=== PATIENT | male | born 1975 | race Caucasian/White ===

== ENCOUNTER 2018-12-30 23:50 | Emergency (ER) | payer MEDICARE, OTHER, SELFPAY ==
--- NOTE | 2018-12-30 23:57 | DI.RAD.S_ITS ---
PROCEDURE: XR CHEST 1V INDICATIONS: chest pain TECHNIQUE: One view of the chest was acquired. COMPARISON: None. FINDINGS: Surgical changes and devices: None. Lungs and pleura: Lungs are clear. No pleural effusions or pneumothorax. Mediastinum: Mediastinal contours appear normal. Heart size is normal. Bones and chest wall: No suspicious bony lesions. Overlying soft tissues appear unremarkable. IMPRESSION: 1. No acute cardiopulmonary disease. Dictated by: Griffin Lozano M.D. on 12/31/2018 at 7:59 Approved by: Griffin Lozano M.D. on 12/31/2018 at 8:00
[2018-12-30 23:58] VITALS: BP 136/91; PULSE 58; RESP 18; TEMP 36.6; O2SAT 98; BMI 24.7
[2018-12-31] MEDS: ASPIRIN 81 MG CHEW TAB 324 MG PO (00:08)
[2018-12-31 00:12] LABS: Prothrombin Time 11.4 SECONDS (10.1-12.7)
[2018-12-31 00:13] LABS: Add Manual Diff / Slide Review NO; Basophils Absolute Auto 100 /uL (0-100); Basophils Percent Auto 1.1 % (0-2); Eosinophils Absolute Auto 200 /uL (0-450); Eosinophils Percent Auto 2.4 % (2-4); Hematocrit 43.4 % (41-53); Hemoglobin 14.8 g/dL (13.5-17.5); Lymphocytes Absolute Auto 4400 /uL (1100-4500); Lymphocytes Percent Auto 45.1 % (25-40); Mean Corpuscular Hemoglobin 29.7 PG (26-34); Mean Corpuscular Volume 87.5 fL (80-100); Monocytes Absolute Auto 800 /uL (0-900); Monocytes Percent Auto 7.9 % (3-14); Neutrophils Absolute Auto 4200 /uL (1500-7000); Neutrophils Percent Auto 43.5 % (50-75); Platelet Count 234 X10^3/uL (150-400); Red Blood Cell Count 4.96 X10^6/uL (4.5-5.9); Red Cell Distribution Width 12.9 % (11.6-14.8); White Blood Cell Count 9.7 X10^3/uL (4.5-11.0)
[2018-12-31 00:15] LABS: PTT Partial Thromboplastin Tim 33 SECONDS (26.4-36.2)
--- NOTE | 2018-12-31 00:19 | ED_ITS ---
HPI - Chest Pain General Chief Complaint: Chest Pain Stated Complaint: chest pain Time Seen by Provider: 12/30/18 23:56 Source: patient Mode of arrival: ambulatory Limitations: no limitations History of Present Illness HPI narrative: Patient is a 43-year-old male who presents with chest discomfort. He has had it 2 nights this week. He had it 2 nights ago just when he was lying down it lasted for 5 hours nonradiating ventrally went away. He is able to work on the house and do some plumbing projects without any difficulty. Tonight he had pizza for dinner it again is lie down to go to sleep and noticed it. He says actually got better when he stood up and walk around but still present. He denies any shortness of breath. No nausea he took some [place] Tums thinking it might be acid reflux but it did not help. He denies any traveling he has no hemoptysis no leg swelling. No fevers is sitting on the center of his chest. MD complaint: chest pain Onset: during rest Pain location: substernal Severity: mild Quality: dull Pain radiation: none Relieving factors: nothing Exacerbating factors: nothing Review of Systems Review of Systems Narrative: GENERAL: Denies chills, fatigue, malaise, fever, sweats, travel HEENT: Denies sinus pain, ear pain, sore throat, difficulty swallowing, neck pain RESPIRATORY: Denies any cough shortness of breath and wheezing, hemoptysis CARDIOVASCULAR: See HPI GASTROINTESTINAL: Denies nausea, vomiting, abdominal pain, diarrhea, constipation, melena. : Denies dysuria, frequency, incontinence, hematuria, urinary retention, flank pain. MUSCULOSKELETAL: Denies weakness, joint pain, or bony pain SKIN: No rash, no erythema, no pruritus NEUROLOGIC: Denies weakness, dizziness, headache, numbness, change in speech, confusion PSYCHIATRIC: No concerning psychosocial issues. 12 point review of systems is negative except for those stated above and HPI [facility] Medical History PTSD (post-traumatic stress disorder) (Acute) Social History Smoking Status: Current every day smoker Social History Smoking Status: Current every day smoker Exam Initial Vital Signs Initial Vital Signs: Vital Signs Temperature 97.9 F 12/30/18 23:58 Pulse Rate 58 L 12/30/18 23:58 Respiratory Rate 18 12/30/18 23:58 Blood Pressure 136/91 H 12/30/18 23:58 Pulse Oximetry 98 12/30/18 23:58 GENERAL: Well-appearing, well-nourished and in no acute distress. HEENT: Head atraumatic,EOMI, pupils reactive, face symmetric, moist mucous membranes CARDIOVASCULAR: Regular rate and rhythm without murmurs, rubs or gallops. RESPIRATORY: Breath sounds equal bilaterally, no wheezes rales or rhonchi. ABDOMEN: Soft, nontender. Normoactive bowel sounds all 4 quadrants. No guarding or rebound. EXTREMITIES: Normal range of motion, no clubbing or edema. Neurovascularly intact NEUROLOGICAL: Alert and oriented x4.Normal gait and speech. SKIN: Warm, dry, no laceration, no petechiae, no rashes or lesions. Scores HEART Score Heart Score history: Slightly Suspicious Heart Score EKG: Normal Heart Score Age: < 45 years old Heart Score risk factors: No known risk factors Heart Score troponin: < or = to normal limit Heart Score Total: 0 PERC Score Age greater than or equal to 50 years: No Heart rate greater than or equal to 100 bpm: No Room Air O2 Sat less than 95%: No Unilateral leg swelling: No Recent trauma or surgery: No Hemoptysis: No Prior PE or DVT: No Hormone Use: No Total PERC Score: 0 Wells' Criteria for PE Clinical signs and symptoms of DVT: No PE is #1 Dx or equally likely: No Heart rate > 100: No Immobilization at least 3 days or surg in previous 4 weeks: No History of PE or DVT: No Hemoptysis: No Malignancy w/Treatment within 6 months or palliative: No Wells' PE Score total: 0 Course Orders Ordered: ED Orders 12/30/18 23:57 XR chest 1V Stat EKG-12 Lead Stat 12/30/18 23:58 B Type Natriuretic Peptide Stat Complete Blood Count AUTO DIFF Stat Comprehensive Metabolic Panel Stat Lipase Stat Partial Thromboplastin Time Stat Prothrombin Time INR Stat Troponin & CK Cardiac Panel Stat 12/31/18 EKG-12 Lead Stat 12/31/18 02:55 Troponin I Stat Discontinued Medications Aspirin (Aspirin Chew) 324 mg PO NOW ONE Stop: 12/30/18 23:57 Last Admin: 12/31/18 00:08 Dose: 324 mg Documented by: MOLINA Ketorolac Tromethamine (Toradol) 30 mg IV NOW ONE Stop: 12/31/18 00:41 Last Admin: 12/31/18 00:53 Dose: 30 mg Documented by: MOLINA Pantoprazole Sodium (Protonix) 40 mg IV NOW ONE Stop: 12/31/18 00:35 Last Admin: 12/31/18 00:54 Dose: 40 mg Documented by: MOLINA Vital Signs Vital signs: Vital Signs - 8 hr 12/30/18 23:58 12/31/18 00:20 12/31/18 01:08 Temperature 97.9 F Pulse Rate 58 L 68 60 Respiratory Rate 18 18 18 Blood Pressure 136/91 H Blood Pressure [Left Arm] 127/86 104/77 Pulse Oximetry 98 98 99 12/31/18 02:03 12/31/18 03:45 Temperature Pulse Rate 60 51 L Respiratory Rate 13 16 Blood Pressure 113/75 Blood Pressure [Left Arm] 112/70 Pulse Oximetry 99 98 MDM - Chest Pain Lab Data Attestation: I reviewed the patient's lab results. Result diagrams: 12/30/18 23:58 12/30/18 23:58 Labs: Lab Results 12/30/18 12/30/18 12/30/18 Range/Units 23:58 23:58 23:58 WBC 9.7 (4.5-11.0) X10^3/uL RBC 4.96 (4.5-5.9) X10^6/uL Hgb 14.8 (13.5-17.5) g/dL Hct 43.4 (41-53) % MCV 87.5 (80-100) fL MCH 29.7 (26-34) PG MCHC 34.0 (30-36) % RDW 12.9 (11.6-14.8) % Plt Count 234 (150-400) X10^3/uL Neut % (Auto) 43.5 L (50-75) % Lymph % (Auto) 45.1 H (25-40) % Rock % (Auto) 7.9 (3-14) % Eos % (Auto) 2.4 (2-4) % Baso % (Auto) 1.1 (0-2) % Neut # (Auto) 4200 (0015-2849) /uL Lymph # (Auto) 4400 (5570-6298) /uL Rock # (Auto) 800 (0-900) /uL Eos # (Auto) 200 (0-450) /uL Baso # (Auto) 100 (0-100) /uL PT 11.4 (10.1-12.7) SECONDS INR 1.0 (0.9-1.3) APTT 33 (26.4-36.2) SECONDS Sodium (137-145) mmol/L Potassium (3.4-5.1) mmol/L Chloride (98-107) mmol/L Carbon Dioxide (22-32) mmol/L BUN (9-20) mg/dL Creatinine (0.66-1.25) mg/dL Estimated GFR (>60) mL/min BUN/Creatinine Ratio (6-22) Glucose (70-100) mg/dL Calcium (8.4-10.2) mg/dL Total Bilirubin (0.2-1.3) mg/dL AST (17-59) IU/L ALT (21-72) IU/L Alkaline Phosphatase (38-126) U/L Total Creatine Kinase (55-170) U/L CK-MB (CK-2) (<2.37) ng/mL CK-MB (CK-2) Rel Index (1.5-5.0) % Troponin I (0.01-0.034) ng/mL B-Natriuretic Peptide < 100 (<100) Total Protein (6.3-8.2) g/dL Albumin (3.5-5.0) g/dL Globulin (1.7-4.1) g/dL Albumin/Globulin Ratio (1.0-2.8) Lipase (23-300) U/L 12/30/18 12/31/18 Range/Units 23:58 02:55 WBC (4.5-11.0) X10^3/uL RBC (4.5-5.9) X10^6/uL Hgb (13.5-17.5) g/dL Hct (41-53) % MCV (80-100) fL MCH (26-34) PG MCHC (30-36) % RDW (11.6-14.8) % Plt Count (150-400) X10^3/uL Neut % (Auto) (50-75) % Lymph % (Auto) (25-40) % Rock % (Auto) (3-14) % Eos % (Auto) (2-4) % Baso % (Auto) (0-2) % Neut # (Auto) (6282-4726) /uL Lymph # (Auto) (7504-4918) /uL Rock # (Auto) (0-900) /uL Eos # (Auto) (0-450) /uL Baso # (Auto) (0-100) /uL PT (10.1-12.7) SECONDS INR (0.9-1.3) APTT (26.4-36.2) SECONDS Sodium 140 (137-145) mmol/L Potassium 4.0 (3.4-5.1) mmol/L Chloride 102 (98-107) mmol/L Carbon Dioxide 31 (22-32) mmol/L BUN 23 H (9-20) mg/dL Creatinine 1.10 (0.66-1.25) mg/dL Estimated GFR > 60.0 (>60) mL/min BUN/Creatinine Ratio 20.9 (6-22) Glucose 103 H (70-100) mg/dL Calcium 9.6 (8.4-10.2) mg/dL Total Bilirubin 0.7 (0.2-1.3) mg/dL AST 104 H (17-59) IU/L ALT 76 H (21-72) IU/L Alkaline Phosphatase 71 (38-126) U/L Total Creatine Kinase 210 H (55-170) U/L CK-MB (CK-2) 1.76 (<2.37) ng/mL CK-MB (CK-2) Rel Index 0.8 L (1.5-5.0) % Troponin I < 0.012 < 0.012 (0.01-0.034) ng/mL B-Natriuretic Peptide (<100) Total Protein 7.3 (6.3-8.2) g/dL Albumin 4.4 (3.5-5.0) g/dL Globulin 2.9 (1.7-4.1) g/dL Albumin/Globulin Ratio 1.5 (1.0-2.8) Lipase 152 (23-300) U/L Imaging Data Chest x-ray: My impression: No acute cardiopulmonary process ECG Data Attestation: I personally reviewed and interpreted this ECG as follows: Prior ECG tracings: not available for review Interpretation: Normal sinus rhythm 357 p.r. interval 176 QRS 100 QTC 376 no p.r . depression no ST elevations or depressions no T-wave inversion EKG 2. Normal sinus rhythm rate [address] changes similar to previous EKG no p.r. depression MDM Narrative Medical decision making narrative: Patient's pain improved with Toradol and he has 2-troponins low low heart score no changes in his EKG. At this time no indication for patient to stay in the hospital. No risk for PE. I discussed all findings with the patient and , Education has been performed regarding treatment plan, diagnosis, warning signs and symptoms and all concerns have been addressed. Verbally agree with and understood all of the above. Discharge Plan Departure Patient Disposition: Home Clinical Impression: Atypical chest pain Discharge Date/Time: 12/31/18 03:45 Instructions: DI for Atypical Chest Pain Activity Restrictions/Additional Instructions: *You have been diagnosed with atypical chest *What to do: At this time there is no indication previous stay in the hospital. However you may require further cardiac stress test or other cardiac testing with her PCP. *Continue to take medications as directed *Follow up with your primary care provider in 2-3 days *Return to ER if you should have changing chest discomfort, increasing shortness of breath or any new, worsening or concerning symptoms Referrals: [facility] [Outside]
[2018-12-31 00:20] VITALS: BP 127/86; PULSE 68; RESP 18; O2SAT 98
[2018-12-31 00:20] LABS: Alanine Aminotransferase 76 IU/L (21-72); Albumin 4.4 g/dL (3.5-5.0); Albumin Globulin Ratio 1.5 (1.0-2.8); Alkaline Phosphatase 71 U/L (38-126); Aspartate Aminotransferase 104 IU/L (17-59); BUN Creatinine Ratio 20.9 (6-22); Bilirubin Total 0.7 mg/dL (0.2-1.3); Blood Urea Nitrogen 23 mg/dL (9-20); Calcium 9.6 mg/dL (8.4-10.2); Carbon Dioxide 31 mmol/L (22-32); Chloride 102 mmol/L (98-107); Creatine Kinase 210 U/L (55-170); Estimated Glomerular Filt Rate > 60.0 mL/min (>60); Globulin 2.9 g/dL (1.7-4.1); Glucose 103 mg/dL (70-100); HEMOLYSIS 19 (0-50); Lipase 152 U/L (23-300); Sodium 140 mmol/L (137-145); Total Protein 7.3 g/dL (6.3-8.2)
[2018-12-31 00:29] LABS: B Type Natriuretic Peptide < 100 (<100)
[2018-12-31 00:32] LABS: Troponin I < 0.012 ng/mL (0.01-0.034)
[2018-12-31 00:36] LABS: CKMB % Relative Index 0.8 % (1.5-5.0); Creatine Kinase MB 1.76 ng/mL (<2.37)
[2018-12-31] MEDS: KETOROLAC 60 MG/2 ML VIAL 30 MG IV (00:53)
[2018-12-31] MEDS: PANTOPRAZOLE 40 MG VIAL IV (00:54)
[2018-12-31 01:08] VITALS: BP 104/77; PULSE 60; RESP 18; O2SAT 99
[2018-12-31 02:03] VITALS: BP 112/70; PULSE 60; RESP 13; O2SAT 99
--- NOTE | 2018-12-31 02:56 | PC.NURSE ---
12 lead EKG done after c/o mild sub sternal c/p. aware.
[2018-12-31 03:35] LABS: Troponin I < 0.012 ng/mL (0.01-0.034)
[2018-12-31 03:45] VITALS: BP 113/75; PULSE 51; RESP 16; O2SAT 98
== END 2018-12-31 03:45 | disposition home or self-care (01) ==
PROVIDERS: Emergency Provider Emergency Medicine
DX: R07.89 Other chest pain (principal)
CPT/HCPCS: 36415; 36591; 71045; 80053; 82550; 82553; 83690; 83880; 84484; 85025; 85610; 85730; 93005; 93010; 96374; 96375; 99283; 99285; C9113; J1885